=== PATIENT | male | born 1945 | race Caucasian/White ===

== ENCOUNTER 2021-10-16 12:41 | Emergency (ER) | payer MEDICARE, SELFPAY ==
--- NOTE | ~2021-10-16 | CT_ITS ---
EXAMINATION: CT HEAD WITHOUT CONTRAST CLINICAL INFORMATION: LOC on Coumadin COMPARISON: None TECHNIQUE: Contiguous axial imaging was performed from the skull base to vertex without intravenous administration of contrast. This CT examination was performed using dose optimization techniques as appropriate, variously including the following: *Automated exposure control *Adjustment of mA and/or kV according to patient size (this includes techniques or standardized protocols for targeted exams where dose is matched to indication/reason for exam; i.e. extremities or head) *Use of iterative reconstruction technique DLP: 733 mGy-cm FINDINGS: There is no evidence of acute intracranial hemorrhage or territorial infarction. No abnormal mass effect or midline shift is seen. Awan to white matter differentiation is well preserved. No extra-axial fluid collections are identified. The ventricles are symmetrical in size but enlarged. There is diffuse periventricular hypodensity suggestive of chronic small vessel ischemic changes. The osseous structures and soft tissues are normal. There are small polyp or retention cyst bilateral maxillary sinuses. Rest of the paranasal sinuses are well-aerated and clear. CT/CT head/brain wo con IMPRESSION: No acute intracranial process seen. Age-related cerebral volume loss. Chronic small vessel ischemic changes in both cerebral hemispheres.
[2021-10-16 12:50] VITALS: BP 158/89; BP 180/93; PULSE 110; PULSE 115; RESP 20; TEMP 37.1; O2SAT 97; BMI 27.3
--- NOTE | 2021-10-16 13:11 | ECG_ITS ---
Test Reason : tachycardia Blood Pressure : / mmHG Vent. Rate : 112 BPM Atrial Rate : 112 BPM P-R Int : 172 ms QRS Dur : 076 ms QT Int : 320 ms P-R-T Axes : 044 009 052 degrees QTc Int : 436 ms Sinus tachycardia Otherwise normal ECG No previous ECGs available Referred By: Dorinda Johnson Electronically Signed By:GRUPO BENITEZ MD
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
[2021-10-16] MEDS: LORazepam 1 MG TABLET PO ×2 (13:18→20:33)
[2021-10-16] MEDS: 0.9 % Sodium Chloride 1,000 ML 999 ML IVCONT ×2 (13:36→18:53)
[2021-10-16 13:40] LABS: MANUAL DIFF FLAG NO
[2021-10-16 13:46] VITALS: BP 181/95; PULSE 109; RESP 23; TEMP 37.1; O2SAT 95
[2021-10-16 13:48] LABS: Basophils Percent Auto 0.5 % (0-2); Eosinophils Percent Auto 0.5 % (0-4); Hematocrit 39.1 % (42.0-52.0); Hemoglobin 12.5 g/dl (14.0-18.0); INTERNATIONAL NORM RATIO 4.2 (0.9-1.1); Imm Gran Abs Auto 0.05 X10*3/uL (0.00-0.03); Imm Gran Pct Auto 0.6 % (0.0-0.4); Lymphocytes Absolute Auto 0.6 X10*3/uL (1.2-4.9); Lymphocytes Percent Auto 6.6 % (20-40); Mean Corpuscular Hemoglobin 30.3 pg (27.0-33.0); Mean Corpuscular Volume 94.9 fL (80.0-98.0); Mean Platelet Volume 9.6 fL (9.4-12.4); Monocytes Absolute Auto 0.4 X10*3/uL (0.1-1.2); Neutrophils Absolute Auto 7.7 x10*3/uL (2.0-8.3); Neutrophils Percent Auto 86.8 % (45-73); Platelet Count 364 X10*3/uL (160-400); Prothrombin Time 51.8 SEC (10.0-13.1); Red Blood Count 4.12 X10*6/uL (4.60-5.80); Red Cell Distribution Width 17.9 % (11.0-16.0); White Blood Count 8.9 X10*3/uL (4.8-10.8)
[2021-10-16 13:58] LABS: D Dimer High Sensitivity 212 NG/ML
[2021-10-16 14:04] LABS: Ethanol < 10 mg/dL
[2021-10-16 14:09] LABS: Alanine Aminotransferase 12 U/L (0-40); Albumin Level 4.5 g/dL (3.5-5.0); Alkaline Phosphatase 78 U/L (39-117); Anion Gap 22 (12-20); Aspartate Amino Transferase 22 U/L (5-37); Bilirubin Direct < 0.2 mg/dL (0.0-0.5); Bilirubin Total 0.2 mg/dL (0.0-1.0); Blood Urea Nitrogen 19 mg/dL (9-16); Calcium 9.8 mg/dL (8.4-10.2); Carbon Dioxide 21 mmol/L (22-29); Chloride 105 mmol/L (96-108); Creatinine Clr Calc Pharmacy 41.6; Estimated Glomerular Filt Rate 45; Glucose Random 201 mg/dL (60-115); Magnesium 1.7 mg/dL (1.6-2.6); Potassium 4.2 mmol/L (3.3-5.1); Sodium 144 mmol/L (135-145); Total Protein 6.9 g/dL (6.5-8.0)
[2021-10-16 14:12] LABS: Troponin-I High Sensitivity 14.1 ng/L (<3.5-35.0)
[2021-10-16 16:18] VITALS: BP 183/87; PULSE 100; RESP 14; TEMP 36.9; O2SAT 92
[2021-10-16 18:04] LABS: Appearance Urine CLEAR; Color Urine YELLOW; Glucose Urine UA NEG (NEG); Leukocyte Esterase Urine NEG (NEG); Nitrite Urine NEG (NEG); PH 5.5 (5.0-8.0); Specific Gravity - Urine >= 1.030 (1.005-1.025); UACC Culture Trigger NO; Urine Blood NEG (NEG); Urine Ketones NEG (NEG); Urine Protein 2+ MG/DL (NEG-TRACE)
[2021-10-16 18:12] LABS: Bacteria Urine TRACE /LPF; Hyaline Casts Urine 0-2 /LPF; RBC Urine 0 /HPF (0); Squamous Epithelial Cell Urine TRACE /LPF; WBC Urine 0 /HPF (0-4)
[2021-10-16 18:32] LABS: Amphetamine Screen Urine Not Detected (Not Detect); Barbiturates, Urine Not Detected (Not Detect); Benzodiazepines Screen Urine Not Detected (Not Detect); Cannabinoid Screen Urine Not Detected (Not Detect); Cocaine Screen Urine POSITIVE (Not Detect); Fentanyl, urine POSITIVE (Not Detect); Opiate Screen Urine Not Detected (Not Detect); Phencyclidine Screen Urine Not Detected (Not Detect)
== END 2021-10-16 20:44 | disposition home or self-care (01) ==
PROVIDERS: Emergency Provider Emergency Medicine
DX: T40.5X1A Poisoning by cocaine, accidental (unintentional), initial encounter (principal); T40.411A Poisoning by fentanyl or fentanyl analogs, accidental (unintentional), initial encounter; R40.4 Transient alteration of awareness; Y92.810 Car as the place of occurrence of the external cause; F41.9 Anxiety disorder, unspecified; F19.10 Other psychoactive substance abuse, uncomplicated; F10.10 Alcohol abuse, uncomplicated; Y90.0 Blood alcohol level of less than 20 mg/100 ml
CPT/HCPCS: 36415; 70450; 80048; 80076; 80307; 81001; 82077; 83735; 84484; 85025; 85379; 85610; 93005; 96360; 96361; 99284

== ENCOUNTER 2022-10-10 15:44 | Inpatient (IN) | payer MEDICARE, SELFPAY ==
[2022-10-10 16:10] VITALS: BP 130/74; PULSE 90; RESP 16; TEMP 36.4; O2SAT 98
[2022-10-10 16:16] VITALS: BMI 26.2
[2022-10-10] MEDS: hydrOXYzine HCL 25 MG TABLET PO (17:21)
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
[2022-10-10 18:00] VITALS: BP 90/51; PULSE 90; RESP 16; TEMP 36.1; O2SAT 94
--- NOTE | 2022-10-10 19:28 | HO.PM.IMCN ---
History of Present Illness Data of Consult Service Date: 10/10/22 Primary Care Provider: Gibson Wheeler DO HPI Reason for consult: Admission H&P Pt is a 76-year-old male with a PMH significant for?HTN, HLD, BPH, GERD, recurrent episodes of aphasia/TIAs, factor V Leiden on Xarelto, hx of DVT, and alcohol use disorder who is admitted to [facility] for increasing confusion and tox screen positive for methadone. Son states his father has been experiencing increased depression and anxiety lately and has noticed missing medications at home. Medical consult for admission H&P. ?Patient seen evaluated in his room where he appeared unsteady on his feet. Patient has a walker on the unit, but uses a cane at. Patient has no acute medical complaints at this time. Only complains of his having a new boyfriend. To denies chest pain/pressure palpitations. No lightheadedness or dizziness. Denies headache, vision changes. No shortness of breath. Denies fever, chills, nausea, vomiting, abdominal pain. Labs reviewed, significant for BUN 31 and creatinine 1.81 Review of Systems Review of Systems: Patient has no acute medical complaints at this time Yes all other systems are reviewed and are negative [facility] Medical History Alcohol abuse Anxiety Substance abuse Social History Household Members: Spouse Housing: House Do you presently have visiting nurse or other home services: No Patient Tobacco Use Status: Never used Tobacco Use of substances other than those prescribed or required for medical reasons: No Currently Displaying Signs/Symptoms of Drug Intoxication Withdrawal: No Have you been hit, kicked, punched, or otherwise hurt by someone within the past year? If so, by whom?: No Do you feel safe in your current relationship?: Yes Is there a partner from a previous relationship who is making you feel unsafe now?: No Are you made to feel afraid or neglected: No (PT STATES THAT HIS CAN BE VERBALLY AGRESSIVE.) Spiritual Healthcare Practices: PT ATTENDS AA Advance Directives: No Advance Directives Information Provided: No (Declined) Do you have thoughts of harming others: None Do you have a plan to hurt others: No Plan Recently lost weight without trying: No How much weight loss: Not applicable Eating poorly because of decreased appetite: Yes Nutrition screen score: 1 Nutrition Risks: No Nutritional Risk Poor oral hygiene: No service: No Sexual orientation: Straight/Heterosexual Meds Allergies Allergy/AdvReac Type Severity Reaction Status Date / Time Unable to Assess Allergy Unverified 10/16/21 13:11 Active Medications: Current Medications Acetaminophen (Acetaminophen 325 Mg Tablet) 650 mg PO Q6H PRN PRN Reason: Headache/Pain Mild Scale (1-3) Al Hydroxide/Mg Hydroxide (Magnesium Hydrox/Alum Hydrox 30 Ml Oral.Susp) 30 ml PO Q6H PRN PRN Reason: Heartburn/Nausea Hydroxyzine HCl (Hydroxyzine Hcl 25 Mg Tablet) 25 mg PO Q6H PRN PRN Reason: Anxiety Last Admin: 10/10/22 17:21 Dose: 25 mg Magnesium Hydroxide (Milk Of Magnesia 30 Ml Oral.Susp) 30 ml PO DAILY PRN PRN Reason: Constipation Trazodone HCl (Trazodone Hcl 50 Mg Tablet) 50 mg PO BEDTIME MRX1 PRN PRN Reason: Insomnia Home Medications Medication Instructions Recorded Confirmed Last Taken Type amlodipine 5 mg tablet 5 mg PO DAILY 10/11/22 10/11/22 Unknown History atorvastatin 80 mg tablet 80 mg PO DAILY 10/11/22 10/11/22 Unknown History celecoxib 200 mg capsule 200 mg PO DAILY 10/11/22 10/11/22 Unknown History escitalopram oxalate 20 mg tablet 20 mg PO DAILY 10/11/22 10/11/22 Unknown History gabapentin 800 mg tablet 800 mg PO QID 10/11/22 10/11/22 Unknown History iron 150 mg-C 60 mg-B12 25 1 cap PO DAILY 10/11/22 10/11/22 Unknown History mcg-folic acid 1 ef-[id number]-yo.acid capsule (Ferrex) lisinopril 10 mg tablet 10 mg PO DAILY 10/11/22 10/11/22 Unknown History lorazepam 1 mg tablet 1 mg PO Q6H PRN anxiety 10/11/22 10/11/22 Unknown History omeprazole 20 mg capsule,delayed 20 mg PO BID 10/11/22 10/11/22 Unknown History release rivaroxaban 20 mg tablet (Xarelto) 20 mg PO DAILY 10/11/22 10/11/22 Unknown History tamsulosin 0.4 mg capsule 0.4 mg PO DAILY 10/11/22 10/11/22 Unknown History tramadol 50 mg tablet 50 mg PO Q6H PRN Pain 10/11/22 10/11/22 Unknown History Physical Exam Vital Signs and Narrative: Vital Signs: Last Vital Signs Temp 97.5 F 10/10/22 16:10 Pulse 90 10/10/22 16:10 Resp 16 10/10/22 16:10 BP 130/74 10/10/22 16:10 Pulse Ox 98 10/10/22 16:10 O2 Del Method Room Air 10/10/22 16:10 BMI result Body Mass Index 26.2 Constitutional: Alert, confused, in no acute distress. Mental Status: Oriented to person and time, not to place or situation. Eyes: Pupils are equal, round, and reactive to light. Ear, Nose, and Throat: Oropharynx clear, mucous membranes moist. Ears and nose without deformities. Trachea midline. Respiratory: Clear to auscultation bilaterally. No wheezing, rales, or rhonchi. Cardiovascular: S1, S2 regular. No murmurs, rubs, or gallops. Gastrointestinal: Abdomen soft, non-tender, non-distended. Normal bowel sounds. Neurologic: Cranial nerves II-XII are grossly intact bilaterally. No focal neurological deficits. Moves all extremities spontaneously. Skin: No rashes or lesions noted. Musculoskeletal: No cyanosis or clubbing. Appears unsteady on feet. Extremities: No edema. Psychiatric: Pleasantly confused, cooperative. Results Labs 10/11/22 08:07 Assessment and Plan (1) Routine history and physical examination of adult: Status: Acute Plan Pt is a 76-year-old male with a PMH significant for?HTN, HLD, BPH, GERD, recurrent episodes of aphasia/TIAs, factor V Leiden on Xarelto, hx of DVT, and alcohol use disorder who is admitted to [facility] for increasing confusion and tox screen positive for methadone. Son states his father has been experiencing increased depression and anxiety lately and has noticed missing medications at home. Medical consult for admission H&P. Mood disorder Plan as per Psychiatry CKD stage 3 Patient's BUN 31 and creatinine 1.81, elevated over levels 1 year ago Unclear what patient's current baseline is Encourage p.o. fluid intake Factor v Leiden Continue Xarelto HTN Continue amlodipine, lisinopril BPH Continue tamsulosin Occurred Continue omeprazole HLD Continue atorvastatin Unsteadiness on feet Pt high fall risk Pt should always use walker for ambulation on the unit Thank you for allowing us to participate in the care of this patient. Signing off at this time. Please let us know if there are any acute complaints or questions. Time Spent With Patient Time: Total time managing care of this patient today ____ minutes.
[2022-10-11] MEDS: traZODone HCL 50 MG TABLET PO ×2 (00:30→20:29)
[2022-10-11] MEDS: hydrOXYzine HCL 25 MG TABLET PO ×2 (00:31→20:29)
--- NOTE | 2022-10-11 08:09 | PHA.MEDREC ---
Pharmacy Consult ? Medication Reconciliation Pharmacy has completed the medication reconciliation. Claim history used to complete med rec
[2022-10-11 08:23] VITALS: BP 104/58; PULSE 76; RESP 18; TEMP 36.8; O2SAT 94
[2022-10-11 08:34] LABS: Alanine Aminotransferase 11 U/L (0-40); Albumin Level 3.8 g/dL (3.5-5.0); Alkaline Phosphatase 105 U/L (39-117); Anion Gap 20 (12-20); Aspartate Amino Transferase 19 U/L (5-37); Bilirubin Total 0.7 mg/dL (0.0-1.0); Blood Urea Nitrogen 31 mg/dL (9-16); Calcium 9.7 mg/dL (8.4-10.2); Carbon Dioxide 20 mmol/L (22-29); Chloride 106 mmol/L (96-108); Cholesterol 146 mg/dL; Creatinine Clr Calc Pharmacy 34.6; Estimated Glomerular Filt Rate 37; Glucose Fasting 100 mg/dL (60-99); HDL Cholesterol 43 mg/dL; LDL Cholesterol Calculated 86 mg/dl; Potassium 4.2 mmol/L (3.3-5.1); Sodium 142 mmol/L (135-145); Total Protein 6.5 g/dL (6.5-8.0); Triglycerides 87 mg/dL
--- NOTE | 2022-10-11 08:53 | P.HPPS_ITS ---
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 According to the crisis assessment, his son call 911 since he found 2 bottles of medication that were empty and he is affected that his father overdosed on Ativan and other medication. Was rushed to the emergency room, assessed by medical team and transfer to the medical unit for clinical observation. The patient was medically cleared, reassessed by Psychiatry and since the patient was very depressed with suicidal ideation transferring to this facility for psychiatric stabilization. On interview, the patient reported that he has marital conflicts for several months, this moment his has a relation with another man, most likely they are going for divorce after several years of marriage and he admitted that he has depressive symptoms elicited by depressed mood, anhedonia, lack of energy, feelings of hopelessness, poor sleep, increased anxiety but he adamantly denies active suicidal ideation. The patient is able to contract for safety in the facility. Historically, the patient had a past history of alcohol use disorder but clean and sober for several years. He reports that he attends 2 AA meetings and denies any recent relapses. According to his chart, on most last year, he was in our emergency room for loss of consciousness since apparently a prostitute sedated him and he was positive to benzos and cocaine. He adamantly denies current substance abuse. No evidence of psychotic symptoms, he is able to contract for safety Past Psychiatric History: Apparently he has a prior psychiatric admission at [facility] several years ago. At least more than 20 years. His primary care physician starting him on antidepressants recently. Medical Evaluation Reviewed: Yes [facility] Medical History (Updated 10/11/22 @ 15:00 by Musa Grey) Alcohol abuse Anxiety Substance abuse Family History: The patient has been adopted and he does not know his biological family. Social History: The patient was adopted when he was 3-day-old, he was raised by his adopted family he stated that he has a very good childhood. He graduated from high school and he has worked as a little live or and a coretta. He got twice he has a daughter from his 1st marriage and 2 adult children for his current marriage. He states that he lives with his but apparently she has moved with her new boyfriend Substance History: Past history of alcohol use. Trauma History: Denies Diagnostics Vital Signs (24Hr): Vital Signs - 24 hr 10/10/22 16:10 10/10/22 18:00 10/11/22 08:23 Temperature 97.5 F 97 F 98.3 F Pulse Rate 90 90 76 Respiratory Rate 16 16 18 Blood Pressure 130/74 90/51 L 104/58 L Pulse Oximetry 98 94 94 Oxygen Delivery Method Room Air Room Air Room Air BMI result Body Mass Index 26.2 Labs 10/11/22 08:07 Labs: Laboratory Results - last 48 hr 10/11/22 08:07 Sodium 142 Potassium 4.2 Chloride 106 Carbon Dioxide 20 L Anion Gap 20 BUN 31 H Creatinine 1.81 H Estim Creat Clear Calc 34.6 Estimated GFR 37 Fasting Glucose 100 H Calcium 9.7 Total Bilirubin 0.7 AST 19 ALT 11 Alkaline Phosphatase 105 Total Protein 6.5 Albumin 3.8 Triglycerides 87 Cholesterol 146 LDL Cholesterol, Calc 86 HDL Cholesterol 43 Meds/Allergies Meds Home Medications Medication Instructions Recorded Confirmed Type amlodipine 5 mg tablet 5 mg PO DAILY 10/11/22 10/11/22 History atorvastatin 80 mg tablet 80 mg PO DAILY 10/11/22 10/11/22 History celecoxib 200 mg capsule 200 mg PO DAILY 10/11/22 10/11/22 History escitalopram oxalate 20 mg tablet 20 mg PO DAILY 10/11/22 10/11/22 History gabapentin 800 mg tablet 800 mg PO QID 10/11/22 10/11/22 History iron 150 mg-C 60 mg-B12 25 1 cap PO DAILY 10/11/22 10/11/22 History mcg-folic acid 1 hx-kophmun-fw.acid capsule (Ferrex) lisinopril 10 mg tablet 10 mg PO DAILY 10/11/22 10/11/22 History lorazepam 1 mg tablet 1 mg PO Q6H PRN anxiety 10/11/22 10/11/22 History omeprazole 20 mg capsule,delayed 20 mg PO BID 10/11/22 10/11/22 History release rivaroxaban 20 mg tablet (Xarelto) 20 mg PO DAILY 10/11/22 10/11/22 History tamsulosin 0.4 mg capsule 0.4 mg PO DAILY 10/11/22 10/11/22 History tramadol 50 mg tablet 50 mg PO Q6H PRN Pain 10/11/22 10/11/22 History Allergies Allergies Allergy/AdvReac Type Severity Reaction Status Date / Time Unable to Assess Allergy Unverified 10/16/21 13:11 Mental Status Exam Mental Status Exam Patient Appearance: Appropriate (On hospital gowns) Patient Orientation: Person, Place and Situation Level of Consciousness: Awake and Appropriate Patient Behavior: Guarded and Passive Mood Description: Withdrawn Affect Description: Constricted Patient Cognition Impaired: Yes Ability to Follow Directions: Good Speech Pattern: Clear Hallucinations: None Delusions: Not Present Thought Process: Distracted Thought Content: positive for Circumstantial Judgement: Fair Assessment & Plan Assessment & Plan (1) Major depressive disorder: Status: Acute Code(s): F32.9 - Major depressive disorder, single episode, unspecified (2) Neurodegenerative cognitive impairment: Status: Acute Code(s): G31.9 - Degenerative disease of nervous system, unspecified Plan The patient is an elderly male with a past history of alcohol use disorder, transferred from [facility] after being medically cleared with a possible overdose on prescription pills. The patient acknowledged a history of depression that was exacerbated with psychosocial stressors, marital discord. He adamantly denies psychotic symptoms. Plan 1. Gather collateral information. 2. 15 minute checks since the patient is able to contract for safety. 3. Continue Lexapro. 4. Neuro cognitive testing. The occupational therapist did a Emery test and an Arian test on admission and it seems that it is lower. We will start with Aricept 5 mg p.o. q.h.s. today. 5. Continue with medical treatment. 6. Reassessment with results Patient educated on: diagnosis and therapeutic strategies Reason for continued inpatient stay Substantial Risk for: inability to function, rapid decompensation and med/psych decompensation Statement Statement: I have reviewed the history and physical and performed a pertinent examination on my patient. No changes have occurred unless specified. If the History and Physical was not performed prior to admission, the Hospitalist's service will be consulted for completing the admission physical. Time Spent With Patient Time: Total time managing care of this patient today _45___ minutes.
[2022-10-11] MEDS: Omeprazole 20 MG CAPSULE.DR PO (17:08)
[2022-10-11 18:00] VITALS: BP 123/64; PULSE 78; RESP 20; TEMP 37.1; O2SAT 95
--- NOTE | 2022-10-12 07:48 | HO.PSYCHPN ---
Subjective Subjective Date of Service: 10/12/22 Reason For Visit: Adjustment disorders with depressed mood Subjective Notes: Conditional Voluntary Interim History: The nursing staff reported that the patient was confused and disorganized last night . He slept only 4 hours he was seen in his room without clthing, naked. On interview the patient was very pleasant, confused at times, explain him that it seems that he has mental status change in the evening so will start a low dose of antipsychotic to prevent this behavior.. Mental Status Exam Mental Status Exam Patient Appearance: Appropriate Patient Orientation: Person and Situation Level of Consciousness: Awake and Appropriate Patient Behavior: Guarded and Passive Mood Description: Withdrawn Affect Description: Constricted Patient Cognition Impaired: Yes Ability to Follow Directions: Good Speech Pattern: Clear Hallucinations: None Delusions: Not Present Thought Process: Distracted and Slowed Thinking Thought Content: positive for [place] and positive for Circumstantial Judgement: Fair Diagnostics Vital Signs (24Hr): Vital Signs - 24 hr 10/11/22 08:23 10/11/22 18:00 Temperature 98.3 F 98.7 F Pulse Rate 76 78 Respiratory Rate 18 20 Blood Pressure 104/58 L 123/64 Pulse Oximetry 94 95 Oxygen Delivery Method Room Air Room Air BMI result Body Mass Index 26.2 Labs 10/11/22 08:07 Labs: Laboratory Results - last 48 hr 10/11/22 08:07 Sodium 142 Potassium 4.2 Chloride 106 Carbon Dioxide 20 L Anion Gap 20 BUN 31 H Creatinine 1.81 H Estim Creat Clear Calc 34.6 Estimated GFR 37 Fasting Glucose 100 H Calcium 9.7 Total Bilirubin 0.7 AST 19 ALT 11 Alkaline Phosphatase 105 Total Protein 6.5 Albumin 3.8 Triglycerides 87 Cholesterol 146 LDL Cholesterol, Calc 86 HDL Cholesterol 43 Medications Medications Current Medications Acetaminophen (Acetaminophen 325 Mg Tablet) 650 mg PO Q6H PRN PRN Reason: Headache/Pain Mild Scale (1-3) Al Hydroxide/Mg Hydroxide (Magnesium Hydrox/Alum Hydrox 30 Ml Oral.Susp) 30 ml PO Q6H PRN PRN Reason: Heartburn/Nausea Amlodipine Besylate (Amlodipine Besylate 5 Mg Tablet) 5 mg PO DAILY [facility]; Protocol Atorvastatin Calcium (Atorvastatin Calcium 80 Mg Tablet) 80 mg PO DAILY [facility] Celecoxib (Celecoxib 200 Mg Capsule) 200 mg PO DAILY [facility] Donepezil HCl (Donepezil Hcl 5 Mg Tablet) 5 mg PO DAILY [facility] Escitalopram Oxalate (Escitalopram Oxalate 20 Mg Tablet) 20 mg PO DAILY [facility] Hydroxyzine HCl (Hydroxyzine Hcl 25 Mg Tablet) 25 mg PO Q6H PRN PRN Reason: Anxiety Last Admin: 10/11/22 20:29 Dose: 25 mg Lisinopril (Lisinopril 10 Mg Tablet) 10 mg PO DAILY [facility]; Protocol Magnesium Hydroxide (Milk Of Magnesia 30 Ml Oral.Susp) 30 ml PO DAILY PRN PRN Reason: Constipation Omeprazole (Omeprazole 20 Mg Capsule.Dr) 20 mg PO BID@0630,1630 [facility] Last Admin: 10/11/22 17:08 Dose: 20 mg Rivaroxaban (Rivaroxaban 20 Mg Tablet) 20 mg PO DAILY [facility] Tamsulosin HCl (Tamsulosin Hcl 0.4 Mg Capsule) 0.4 mg PO DAILY [facility] Tramadol HCl (Tramadol Hcl 50 Mg Tablet) 50 mg PO Q6H PRN PRN Reason: Pain, Moderate(Pain Scale 4-6) Trazodone HCl (Trazodone Hcl 50 Mg Tablet) 50 mg PO BEDTIME MRX1 PRN PRN Reason: Insomnia Last Admin: 10/11/22 20:29 Dose: 50 mg Allergies Allergies Allergy/AdvReac Type Severity Reaction Status Date / Time Unable to Assess Allergy Unverified 10/16/21 13:11 Assessment & Plan Assessment & Plan (1) Routine history and physical examination of adult: Status: Acute Code(s): Z00.00 - Encounter for general adult medical examination without abnormal findings Plan Pt is a 76-year-old male with a PMH significant for?HTN, HLD, BPH, GERD, recurrent episodes of aphasia/TIAs, factor V Leiden on Xarelto, hx of DVT, and alcohol use disorder who is admitted to [facility] for increasing confusion and tox screen positive for methadone. Son states his father has been experiencing increased depression and anxiety lately and has noticed missing medications at home. Medical consult for admission H&P. Mood disorder Plan as per Psychiatry CKD stage 3 Patient's BUN 31 and creatinine 1.81, elevated over levels 1 year ago Unclear what patient's current baseline is Encourage p.o. fluid intake Factor v Leiden Continue Xarelto HTN Continue amlodipine, lisinopril BPH Continue tamsulosin Occurred Continue omeprazole HLD Continue atorvastatin Unsteadiness on feet Pt high fall risk Pt should always use walker for ambulation on the unit Plan 1. Gather collateral information. 2. Continue with current medications. 3. Start dose of Risperdal 0.5 p.o. q.h.s. to target on October 12. 4. We will discontinue Vistaril and we try trazodone as a p.r.n. for anxiety on October 12. 5. Increased Aricept up to 10 mg p.o. q.h.s. in October 12. Reason for continued inpatient stay Substantial Risk for: inability to function, rapid decompensation and med/psych decompensation Time Spent With Patient Time: Total time managing care of this patient today __20__ minutes.
[2022-10-12 08:00] VITALS: BP 128/64; PULSE 70; RESP 16; TEMP 36.9; O2SAT 96
[2022-10-12] MEDS: Tamsulosin HCL 0.4 MG CAPSULE PO (09:12)
[2022-10-12] MEDS: amLODIPine Besylate 5 MG TABLET PO (09:12)
[2022-10-12] MEDS: Rivaroxaban 20 MG TABLET PO (09:12)
[2022-10-12] MEDS: Escitalopram Oxalate 20 MG TABLET PO (09:12)
[2022-10-12] MEDS: Celecoxib 200 MG CAPSULE PO (09:12)
[2022-10-12] MEDS: Atorvastatin Calcium 80 MG TABLET PO (09:12)
[2022-10-12] MEDS: lisinopriL 10 MG TABLET PO (09:12)
[2022-10-12] MEDS: Omeprazole 20 MG CAPSULE.DR PO ×2 (09:18→16:11)
[2022-10-12] MEDS: Donepezil HCl 10 MG TABLET PO (09:21)
[2022-10-12] MEDS: Acetaminophen 325 MG TABLET 650 MG PO (12:09)
[2022-10-12 18:00] VITALS: BP 116/58; PULSE 64; RESP 16; TEMP 36.1; O2SAT 97
[2022-10-12] MEDS: traZODone HCL 50 MG TABLET PO (20:25)
[2022-10-12] MEDS: risperiDONE 0.5 MG TABLET PO (20:25)
[2022-10-13 08:00] VITALS: BP 94/52; PULSE 77; RESP 18; TEMP 36.5; O2SAT 96
--- NOTE | 2022-10-13 08:18 | P.PNPSI_ITS ---
Subjective Subjective Date of Service: 10/13/22 Reason For Visit: Adjustment disorders with depressed mood Subjective Notes: Conditional Voluntary Interim History: The nursing staff reported the patient had been less confused last night he slept all night. He was lucid and he has been medication compliant. Yesterday he had a bowel movement. On interview the patient is pleasant, cooperative, he asked for the telephone of his son Ward. We are changing his observation to 15 minute checks. Mental Status Exam Mental Status Exam Patient Appearance: Appropriate Patient Orientation: Person and Situation Level of Consciousness: Awake and Appropriate Patient Behavior: Guarded and Passive Mood Description: Calm Affect Description: Constricted Patient Cognition Impaired: Yes Ability to Follow Directions: Good Speech Pattern: Clear Hallucinations: None Delusions: Not Present Thought Process: Distracted and Evasive Thought Content: positive for [place] and positive for [place] Judgement: Fair Diagnostics Vital Signs (24Hr): Vital Signs - 24 hr 10/12/22 18:00 Temperature 96.9 F Pulse Rate 64 Respiratory Rate 16 Blood Pressure 116/58 L Pulse Oximetry 97 Oxygen Delivery Method Room Air BMI result Body Mass Index 26.2 Labs 10/11/22 08:07 Labs: Laboratory Results - last 48 hr 10/11/22 08:07 Sodium 142 Potassium 4.2 Chloride 106 Carbon Dioxide 20 L Anion Gap 20 BUN 31 H Creatinine 1.81 H Estim Creat Clear Calc 34.6 Estimated GFR 37 Fasting Glucose 100 H Calcium 9.7 Total Bilirubin 0.7 AST 19 ALT 11 Alkaline Phosphatase 105 Total Protein 6.5 Albumin 3.8 Triglycerides 87 Cholesterol 146 LDL Cholesterol, Calc 86 HDL Cholesterol 43 Medications Medications Current Medications Acetaminophen (Acetaminophen 325 Mg Tablet) 650 mg PO Q6H PRN PRN Reason: Headache/Pain Mild Scale (1-3) Last Admin: 10/12/22 12:09 Dose: 650 mg Al Hydroxide/Mg Hydroxide (Magnesium Hydrox/Alum Hydrox 30 Ml Oral.Susp) 30 ml PO Q6H PRN PRN Reason: Heartburn/Nausea Amlodipine Besylate (Amlodipine Besylate 5 Mg Tablet) 5 mg PO DAILY [facility]; Protocol Last Admin: 10/12/22 09:12 Dose: 5 mg Atorvastatin Calcium (Atorvastatin Calcium 80 Mg Tablet) 80 mg PO DAILY [facility] Last Admin: 10/12/22 09:12 Dose: 80 mg Celecoxib (Celecoxib 200 Mg Capsule) 200 mg PO DAILY [facility] Last Admin: 07/29/23 09:12 Dose: 200 mg Donepezil HCl (Donepezil Hcl 10 Mg Tablet) 10 mg PO DAILY [facility] Last Admin: 10/12/22 09:21 Dose: 10 mg Escitalopram Oxalate (Escitalopram Oxalate 20 Mg Tablet) 20 mg PO DAILY [facility] Last Admin: 10/12/22 09:12 Dose: 20 mg Lisinopril (Lisinopril 10 Mg Tablet) 10 mg PO DAILY [facility]; Protocol Last Admin: 10/12/22 09:12 Dose: 10 mg Magnesium Hydroxide (Milk Of Magnesia 30 Ml Oral.Susp) 30 ml PO DAILY PRN PRN Reason: Constipation Omeprazole (Omeprazole 20 Mg Capsule.Dr) 20 mg PO BID@0630,1630 [facility] Last Admin: 10/12/22 16:11 Dose: 20 mg Risperidone (Risperidone 0.5 Mg Tablet) 0.5 mg PO BEDTIME [facility] Last Admin: 10/12/22 20:25 Dose: 0.5 mg Rivaroxaban (Rivaroxaban 20 Mg Tablet) 20 mg PO DAILY [facility] Last Admin: 10/12/22 09:12 Dose: 20 mg Tamsulosin HCl (Tamsulosin Hcl 0.4 Mg Capsule) 0.4 mg PO DAILY [facility] Last Admin: 10/12/22 09:12 Dose: 0.4 mg Tramadol HCl (Tramadol Hcl 50 Mg Tablet) 50 mg PO Q6H PRN PRN Reason: Pain, Moderate(Pain Scale 4-6) Trazodone HCl (Trazodone Hcl 50 Mg Tablet) 50 mg PO BEDTIME MRX1 PRN PRN Reason: Insomnia Last Admin: 10/12/22 20:25 Dose: 50 mg Trazodone HCl (Trazodone Hcl 25 Mg Halftab) 25 mg PO TID PRN PRN Reason: Anxiety Allergies Allergies Allergy/AdvReac Type Severity Reaction Status Date / Time No Known Allergies Allergy Verified 10/12/22 09:57 Assessment & Plan Assessment & Plan (1) Routine history and physical examination of adult: Status: Acute Code(s): Z00.00 - Encounter for general adult medical examination without abnormal findings Plan Pt is a 76-year-old male with a PMH significant for?HTN, HLD, BPH, GERD, recurrent episodes of aphasia/TIAs, factor V Leiden on Xarelto, hx of DVT, and alcohol use disorder who is admitted to [facility] for increasing confusion and tox screen positive for methadone. Son states his father has been experiencing increased depression and anxiety lately and has noticed missing medications at home. Medical consult for admission H&P. Mood disorder Plan as per Psychiatry CKD stage 3 Patient's BUN 31 and creatinine 1.81, elevated over levels 1 year ago Unclear what patient's current baseline is Encourage p.o. fluid intake Factor v Leiden Continue Xarelto HTN Continue amlodipine, lisinopril BPH Continue tamsulosin Occurred Continue omeprazole HLD Continue atorvastatin Unsteadiness on feet Pt high fall risk Pt should always use walker for ambulation on the unit Plan 1. Gather collateral information. 2. Continue with current medications. 3. Start dose of Risperdal 0.5 p.o. q.h.s. to target on October 12. 4. We will discontinue Vistaril and we try trazodone as a p.r.n. for anxiety on October 12. 5. Increased Aricept up to 10 mg p.o. q.h.s. in October 12. Reason for continued inpatient stay Substantial Risk for: inability to function, rapid decompensation and med/psych decompensation Time Spent With Patient Time: Total time managing care of this patient today __20__ minutes.
[2022-10-13] MEDS: Tamsulosin HCL 0.4 MG CAPSULE PO (08:22)
[2022-10-13] MEDS: Celecoxib 200 MG CAPSULE PO (08:22)
[2022-10-13] MEDS: Escitalopram Oxalate 20 MG TABLET PO (08:23)
[2022-10-13] MEDS: Atorvastatin Calcium 80 MG TABLET PO (08:23)
[2022-10-13] MEDS: Donepezil HCl 10 MG TABLET PO (08:23)
[2022-10-13] MEDS: Omeprazole 20 MG CAPSULE.DR PO ×2 (08:23→15:40)
[2022-10-13] MEDS: Rivaroxaban 20 MG TABLET PO (08:23)
[2022-10-13 18:00] VITALS: BP 134/64; PULSE 71; RESP 18; TEMP 36.9; O2SAT 96
[2022-10-13] MEDS: risperiDONE 0.5 MG TABLET PO (20:36)
[2022-10-13] MEDS: traZODone HCL 50 MG TABLET PO (20:36)
[2022-10-14] MEDS: traZODone HCL 50 MG TABLET PO ×2 (01:47→20:47)
[2022-10-14] MEDS: Omeprazole 20 MG CAPSULE.DR PO ×2 (05:43→16:38)
[2022-10-14 08:15] VITALS: BP 128/63; PULSE 79; RESP 18; TEMP 36.3; O2SAT 99
[2022-10-14] MEDS: Escitalopram Oxalate 20 MG TABLET PO (08:43)
[2022-10-14] MEDS: Donepezil HCl 10 MG TABLET PO (08:43)
[2022-10-14] MEDS: Celecoxib 200 MG CAPSULE PO (08:43)
[2022-10-14] MEDS: amLODIPine Besylate 5 MG TABLET PO (08:43)
[2022-10-14] MEDS: Atorvastatin Calcium 80 MG TABLET PO (08:44)
[2022-10-14] MEDS: Rivaroxaban 20 MG TABLET PO (08:44)
[2022-10-14] MEDS: lisinopriL 10 MG TABLET PO (08:44)
[2022-10-14] MEDS: Tamsulosin HCL 0.4 MG CAPSULE PO (08:45)
--- NOTE | 2022-10-14 10:28 | HO.PSYCHPN ---
Subjective Subjective Date of Service: 10/14/22 Reason For Visit: Adjustment disorders with depressed mood Subjective Notes: Conditional Voluntary Healthcare Proxy: No Guardianship: No Medical Problems Affecting Mental Status: No Interim History: Review with team who report pt is doing well. He has been able to sleep, attend groups, denies SI, HI and has been medication compliant. Pt resting when seen, awakens easily, spontaneous smile, denies pain or issues of current concern. Oriented to person, place ([place]), some conversation when awakens fully. Medication Compliance: Yes Side effects from medications: No Attending Groups: Intermittent Review of Systems Acute medical concerns: No Medical Review of Systems: unchanged Mental Status Exam Mental Status Exam Patient Appearance: Fatigued Patient Orientation: Person and Place Level of Consciousness: Awake and Drowsy Patient Behavior: Appropriate, Talkative, Cooperative, Passive, Fatigued, Confused and Good Eye Contact Mood Description: Calm Affect Description: Flat Patient Cognition Impaired: Yes Ability to Follow Directions: Fair Speech Pattern: Spontaneous Speech, Soft-Spoken and Long Pauses Memory Description: Remote Impaired Hallucinations: None Delusions: Not Present Thought Process: Confusion Thought Content: positive for Slowed Thinking Depressive Symptoms: Increased Fatigue Judgement: Poor Diagnostics Vital Signs (24Hr): Vital Signs - 24 hr 10/13/22 18:00 10/14/22 08:15 Temperature 98.4 F 97.3 F Pulse Rate 71 79 Respiratory Rate 18 18 Blood Pressure 134/64 128/63 Pulse Oximetry 96 99 Oxygen Delivery Method Room Air Room Air BMI result Body Mass Index 26.2 Labs 10/11/22 08:07 Medications Medications Current Medications Acetaminophen (Acetaminophen 325 Mg Tablet) 650 mg PO Q6H PRN PRN Reason: Headache/Pain Mild Scale (1-3) Last Admin: 10/12/22 12:09 Dose: 650 mg Al Hydroxide/Mg Hydroxide (Magnesium Hydrox/Alum Hydrox 30 Ml Oral.Susp) 30 ml PO Q6H PRN PRN Reason: Heartburn/Nausea Amlodipine Besylate (Amlodipine Besylate 5 Mg Tablet) 5 mg PO DAILY [facility]; Protocol Last Admin: 10/14/22 08:43 Dose: 5 mg Atorvastatin Calcium (Atorvastatin Calcium 80 Mg Tablet) 80 mg PO DAILY [facility] Last Admin: 10/14/22 08:44 Dose: 80 mg Celecoxib (Celecoxib 200 Mg Capsule) 200 mg PO DAILY [facility] Last Admin: 10/14/22 08:43 Dose: 200 mg Donepezil HCl (Donepezil Hcl 10 Mg Tablet) 10 mg PO DAILY [facility] Last Admin: 10/14/22 08:43 Dose: 10 mg Escitalopram Oxalate (Escitalopram Oxalate 20 Mg Tablet) 20 mg PO DAILY [facility] Last Admin: 10/14/22 08:43 Dose: 20 mg Lisinopril (Lisinopril 10 Mg Tablet) 10 mg PO DAILY [facility]; Protocol Last Admin: 10/14/22 08:44 Dose: 10 mg Magnesium Hydroxide (Milk Of Magnesia 30 Ml Oral.Susp) 30 ml PO DAILY PRN PRN Reason: Constipation Omeprazole (Omeprazole 20 Mg Capsule.Dr) 20 mg PO BID@0630,1630 [facility] Last Admin: 10/14/22 05:43 Dose: 20 mg Risperidone (Risperidone 0.5 Mg Tablet) 0.5 mg PO BEDTIME [facility] Last Admin: 10/13/22 20:36 Dose: 0.5 mg Rivaroxaban (Rivaroxaban 20 Mg Tablet) 20 mg PO DAILY [facility] Last Admin: 10/14/22 08:44 Dose: 20 mg Tamsulosin HCl (Tamsulosin Hcl 0.4 Mg Capsule) 0.4 mg PO DAILY [facility] Last Admin: 10/14/22 08:45 Dose: 0.4 mg Tramadol HCl (Tramadol Hcl 50 Mg Tablet) 50 mg PO Q6H PRN PRN Reason: Pain, Moderate(Pain Scale 4-6) Trazodone HCl (Trazodone Hcl 50 Mg Tablet) 50 mg PO BEDTIME MRX1 PRN PRN Reason: Insomnia Last Admin: 10/14/22 01:47 Dose: 50 mg Trazodone HCl (Trazodone Hcl 25 Mg Halftab) 25 mg PO TID PRN PRN Reason: Anxiety Allergies Allergies Allergy/AdvReac Type Severity Reaction Status Date / Time No Known Allergies Allergy Verified 10/12/22 09:57 Assessment & Plan Assessment & Plan (1) Routine history and physical examination of adult: Status: Acute Code(s): Z00.00 - Encounter for general adult medical examination without abnormal findings Plan Pt is a 76-year-old male with a PMH significant for?HTN, HLD, BPH, GERD, recurrent episodes of aphasia/TIAs, factor V Leiden on Xarelto, hx of DVT, and alcohol use disorder who is admitted to [facility] for increasing confusion and tox screen positive for methadone. Son states his father has been experiencing increased depression and anxiety lately and has noticed missing medications at home. Medical consult for admission H&P. Mood disorder Plan as per Psychiatry CKD stage 3 Patient's BUN 31 and creatinine 1.81, elevated over levels 1 year ago Unclear what patient's current baseline is Encourage p.o. fluid intake Factor v Leiden Continue Xarelto HTN Continue amlodipine, lisinopril BPH Continue tamsulosin Occurred Continue omeprazole HLD Continue atorvastatin Unsteadiness on feet Pt high fall risk Pt should always use walker for ambulation on the unit Plan 1. Gather collateral information. 2. Continue with current medications. 3. Start dose of Risperdal 0.5 p.o. q.h.s. to target on October 12. 4. We will discontinue Vistaril and we try trazodone as a p.r.n. for anxiety on October 12. 5. Increased Aricept up to 10 mg p.o. q.h.s. in October 12. 7/; Continue current regime and plan of care. Informed Consent: does not understand Reason for continued inpatient stay Substantial Risk for: harm to self, inability to function and med/psych decompensation Time Spent With Patient Time: Total time managing care of this patient today ____ minutes.
[2022-10-14 12:02] LABS: Alanine Aminotransferase 11 U/L (0-40); Albumin Level 4.3 g/dL (3.5-5.0); Alkaline Phosphatase 107 U/L (39-117); Anion Gap 19 (12-20); Aspartate Amino Transferase 17 U/L (5-37); Bilirubin Total 0.8 mg/dL (0.0-1.0); Blood Urea Nitrogen 48 mg/dL (9-16); Carbon Dioxide 18 mmol/L (22-29); Chloride 107 mmol/L (96-108); Creatinine Clr Calc Pharmacy 36.4; Estimated Glomerular Filt Rate 39; Glucose Random 114 mg/dL (60-115); Potassium 4.5 mmol/L (3.3-5.1); Sodium 139 mmol/L (135-145); Total Protein 7.2 g/dL (6.5-8.0)
[2022-10-14 18:00] VITALS: BP 125/60; PULSE 73; RESP 16; TEMP 36; O2SAT 96
[2022-10-14] MEDS: risperiDONE 0.5 MG TABLET PO (20:36)
[2022-10-15] MEDS: Omeprazole 20 MG CAPSULE.DR PO ×2 (06:23→15:01)
[2022-10-15 07:55] VITALS: BP 101/59; PULSE 82; RESP 16; TEMP 36.6; O2SAT 94
[2022-10-15] MEDS: Atorvastatin Calcium 80 MG TABLET PO (08:17)
[2022-10-15] MEDS: Escitalopram Oxalate 20 MG TABLET PO (08:17)
[2022-10-15] MEDS: Donepezil HCl 10 MG TABLET PO (08:17)
[2022-10-15] MEDS: Rivaroxaban 20 MG TABLET PO (08:17)
[2022-10-15] MEDS: Tamsulosin HCL 0.4 MG CAPSULE PO (08:18)
[2022-10-15] MEDS: Celecoxib 200 MG CAPSULE PO (08:18)
--- NOTE | 2022-10-15 10:52 | P.PNPSI_ITS ---
Subjective Subjective Date of Service: 10/15/22 Reason For Visit: Adjustment disorders with depressed mood Subjective Notes: Conditional Voluntary Interim History: The nursing staff reported the patient denies new complaints, he had been very worried about the situation with his that is cheating on him. The social sciences chair reported that we will have a family meeting with his son today at 11:00 o'clock. The occupational therapist reported that he scored 16/30 on the [place] test and tree 0.2 on the Arian test that shows moderated cognitive impairment. On interview the patient denies new symptoms, confused at times, no side effects with the addition of Aricept and Risperdal 0.5 in the evening. Mental Status Exam Mental Status Exam Patient Appearance: Appropriate Patient Orientation: Person and Situation Level of Consciousness: Awake and Appropriate Patient Behavior: Guarded and Passive Mood Description: Calm and Depressed Affect Description: Constricted Patient Cognition Impaired: Yes Ability to Follow Directions: Good Speech Pattern: Clear Hallucinations: None Delusions: Not Present Thought Process: Distracted and Goal Oriented Thought Content: positive for [place] and positive for Circumstantial Judgement: Fair Diagnostics Vital Signs (24Hr): Vital Signs - 24 hr 10/14/22 18:00 10/15/22 07:55 Temperature 96.8 F 97.9 F Pulse Rate 73 82 Respiratory Rate 16 16 Blood Pressure 125/60 101/59 L Pulse Oximetry 96 94 Oxygen Delivery Method Room Air Room Air BMI result Body Mass Index 26.2 Labs 10/14/22 11:43 Labs: Laboratory Results - last 48 hr 10/14/22 11:43 Sodium 139 Potassium 4.5 Chloride 107 Carbon Dioxide 18 L Anion Gap 19 BUN 48 H Creatinine 1.72 H Estim Creat Clear Calc 36.4 Estimated GFR 39 Random Glucose 114 Calcium 10.0 Total Bilirubin 0.8 AST 17 ALT 11 Alkaline Phosphatase 107 Total Protein 7.2 Albumin 4.3 Medications Medications Current Medications Acetaminophen (Acetaminophen 325 Mg Tablet) 650 mg PO Q6H PRN PRN Reason: Headache/Pain Mild Scale (1-3) Last Admin: 10/12/22 12:09 Dose: 650 mg Al Hydroxide/Mg Hydroxide (Magnesium Hydrox/Alum Hydrox 30 Ml Oral.Susp) 30 ml PO Q6H PRN PRN Reason: Heartburn/Nausea Amlodipine Besylate (Amlodipine Besylate 5 Mg Tablet) 5 mg PO DAILY [facility]; Protocol Last Admin: 10/15/22 08:19 Dose: Not Given Atorvastatin Calcium (Atorvastatin Calcium 80 Mg Tablet) 80 mg PO DAILY [facility] Last Admin: 10/15/22 08:17 Dose: 80 mg Celecoxib (Celecoxib 200 Mg Capsule) 200 mg PO DAILY [facility] Last Admin: 10/15/22 08:18 Dose: 200 mg Donepezil HCl (Donepezil Hcl 10 Mg Tablet) 10 mg PO DAILY [facility] Last Admin: 10/15/22 08:17 Dose: 10 mg Escitalopram Oxalate (Escitalopram Oxalate 20 Mg Tablet) 20 mg PO DAILY [facility] Last Admin: 10/15/22 08:17 Dose: 20 mg Lisinopril (Lisinopril 10 Mg Tablet) 10 mg PO DAILY [facility]; Protocol Last Admin: 10/15/22 08:19 Dose: Not Given Magnesium Hydroxide (Milk Of Magnesia 30 Ml Oral.Susp) 30 ml PO DAILY PRN PRN Reason: Constipation Omeprazole (Omeprazole 20 Mg Capsule.Dr) 20 mg PO BID@0630,1630 [facility] Last Admin: 10/15/22 06:23 Dose: 20 mg Risperidone (Risperidone 0.5 Mg Tablet) 0.5 mg PO BEDTIME [facility] Last Admin: 10/14/22 20:36 Dose: 0.5 mg Rivaroxaban (Rivaroxaban 20 Mg Tablet) 20 mg PO DAILY [facility] Last Admin: 10/15/22 08:17 Dose: 20 mg Tamsulosin HCl (Tamsulosin Hcl 0.4 Mg Capsule) 0.4 mg PO DAILY [facility] Last Admin: 10/15/22 08:18 Dose: 0.4 mg Tramadol HCl (Tramadol Hcl 50 Mg Tablet) 50 mg PO Q6H PRN PRN Reason: Pain, Moderate(Pain Scale 4-6) Trazodone HCl (Trazodone Hcl 50 Mg Tablet) 50 mg PO BEDTIME MRX1 PRN PRN Reason: Insomnia Last Admin: 10/14/22 20:47 Dose: 50 mg Trazodone HCl (Trazodone Hcl 25 Mg Halftab) 25 mg PO TID PRN PRN Reason: Anxiety Allergies Allergies Allergy/AdvReac Type Severity Reaction Status Date / Time No Known Allergies Allergy Verified 10/12/22 09:57 Assessment & Plan Assessment & Plan (1) Routine history and physical examination of adult: Status: Acute Code(s): Z00.00 - Encounter for general adult medical examination without abnormal findings Plan Pt is a 76-year-old male with a PMH significant for?HTN, HLD, BPH, GERD, recurrent episodes of aphasia/TIAs, factor V Leiden on Xarelto, hx of DVT, and alcohol use disorder who is admitted to [facility] for increasing confusion and tox screen positive for methadone. Son states his father has been experiencing increased depression and anxiety lately and has noticed missing medications at home. Medical consult for admission H&P. Mood disorder Plan as per Psychiatry CKD stage 3 Patient's BUN 31 and creatinine 1.81, elevated over levels 1 year ago Unclear what patient's current baseline is Encourage p.o. fluid intake Factor v Leiden Continue Xarelto HTN Continue amlodipine, lisinopril BPH Continue tamsulosin Occurred Continue omeprazole HLD Continue atorvastatin Unsteadiness on feet Pt high fall risk Pt should always use walker for ambulation on the unit Plan 1. Gather collateral information. 2. Continue with current medications. 3. Start dose of Risperdal 0.5 p.o. q.h.s. to target on October 12. 4. We will discontinue Vistaril and we try trazodone as a p.r.n. for anxiety on October 12. 5. Increased Aricept up to 10 mg p.o. q.h.s. in October 12. 6. Family meeting on October 15 with his son. Reason for continued inpatient stay Substantial Risk for: inability to function, rapid decompensation and med/psych decompensation Time Spent With Patient Time: Total time managing care of this patient today _20___ minutes.
[2022-10-15 19:40] VITALS: BP 130/65; PULSE 66; RESP 16; TEMP 36.5; O2SAT 95
[2022-10-15] MEDS: risperiDONE 0.5 MG TABLET PO (20:05)
[2022-10-15] MEDS: traZODone HCL 50 MG TABLET PO (20:48)
[2022-10-16] MEDS: Omeprazole 20 MG CAPSULE.DR PO ×2 (06:14→17:29)
[2022-10-16 08:00] VITALS: BP 125/72; PULSE 80; RESP 18; TEMP 36.6; O2SAT 98
[2022-10-16] MEDS: lisinopriL 10 MG TABLET PO (08:18)
[2022-10-16] MEDS: Atorvastatin Calcium 80 MG TABLET PO (08:18)
[2022-10-16] MEDS: Donepezil HCl 10 MG TABLET PO (08:19)
[2022-10-16] MEDS: amLODIPine Besylate 5 MG TABLET PO (08:19)
[2022-10-16] MEDS: Escitalopram Oxalate 20 MG TABLET PO (08:19)
[2022-10-16] MEDS: Tamsulosin HCL 0.4 MG CAPSULE PO (08:19)
[2022-10-16] MEDS: Celecoxib 200 MG CAPSULE PO (08:19)
[2022-10-16] MEDS: Rivaroxaban 20 MG TABLET PO (08:20)
--- NOTE | 2022-10-16 13:15 | P.PNPSI_ITS ---
Subjective Subjective Date of Service: 10/16/22 Reason For Visit: Adjustment disorders with depressed mood Subjective Notes: Conditional Voluntary Interim History: The nursing staff reported the patient slept 8 hours, he was pleasant cooperative fully compliant with treatment and meals. On interview the patient denies new symptoms he adamantly denies suicidal i deation, we discussed discharge planning for tomorrow. Mental Status Exam Mental Status Exam Patient Appearance: Well Grooomed and Appropriate Patient Orientation: Person and Situation Level of Consciousness: Awake and Appropriate Patient Behavior: Guarded and Passive Mood Description: Withdrawn Affect Description: Constricted Patient Cognition Impaired: Yes Ability to Follow Directions: Good Speech Pattern: Clear Hallucinations: None Delusions: Not Present Thought Process: Linear Thought Content: positive for [place] and positive for [place] of Content Judgement: Fair Diagnostics Vital Signs (24Hr): Vital Signs - 24 hr 10/15/22 19:40 10/16/22 08:00 Temperature 97.7 F 97.9 F Pulse Rate 66 80 Respiratory Rate 16 18 Blood Pressure 130/65 125/72 Pulse Oximetry 95 98 Oxygen Delivery Method Room Air Room Air BMI result Body Mass Index 26.2 Labs 10/14/22 11:43 Medications Medications Current Medications Acetaminophen (Acetaminophen 325 Mg Tablet) 650 mg PO Q6H PRN PRN Reason: Headache/Pain Mild Scale (1-3) Last Admin: 10/12/22 12:09 Dose: 650 mg Al Hydroxide/Mg Hydroxide (Magnesium Hydrox/Alum Hydrox 30 Ml Oral.Susp) 30 ml PO Q6H PRN PRN Reason: Heartburn/Nausea Amlodipine Besylate (Amlodipine Besylate 5 Mg Tablet) 5 mg PO DAILY [facility]; Protocol Last Admin: 10/16/22 08:19 Dose: 5 mg Atorvastatin Calcium (Atorvastatin Calcium 80 Mg Tablet) 80 mg PO DAILY [facility] Last Admin: 10/16/22 08:18 Dose: 80 mg Celecoxib (Celecoxib 200 Mg Capsule) 200 mg PO DAILY [facility] Last Admin: 10/16/22 08:19 Dose: 200 mg Donepezil HCl (Donepezil Hcl 10 Mg Tablet) 10 mg PO DAILY [facility] Last Admin: 10/16/22 08:19 Dose: 10 mg Escitalopram Oxalate (Escitalopram Oxalate 20 Mg Tablet) 20 mg PO DAILY [facility] Last Admin: 10/16/22 08:19 Dose: 20 mg Lisinopril (Lisinopril 10 Mg Tablet) 10 mg PO DAILY [facility]; Protocol Last Admin: 10/16/22 08:18 Dose: 10 mg Magnesium Hydroxide (Milk Of Magnesia 30 Ml Oral.Susp) 30 ml PO DAILY PRN PRN Reason: Constipation Omeprazole (Omeprazole 20 Mg Capsule.Dr) 20 mg PO BID@0630,1630 [facility] Last Admin: 10/16/22 06:14 Dose: 20 mg Risperidone (Risperidone 0.5 Mg Tablet) 0.5 mg PO BEDTIME [facility] Last Admin: 10/15/22 20:05 Dose: 0.5 mg Rivaroxaban (Rivaroxaban 20 Mg Tablet) 20 mg PO DAILY [facility] Last Admin: 10/16/22 08:20 Dose: 20 mg Tamsulosin HCl (Tamsulosin Hcl 0.4 Mg Capsule) 0.4 mg PO DAILY [facility] Last Admin: 10/16/22 08:19 Dose: 0.4 mg Tramadol HCl (Tramadol Hcl 50 Mg Tablet) 50 mg PO Q6H PRN PRN Reason: Pain, Moderate(Pain Scale 4-6) Trazodone HCl (Trazodone Hcl 50 Mg Tablet) 50 mg PO BEDTIME MRX1 PRN PRN Reason: Insomnia Last Admin: 10/15/22 20:48 Dose: 50 mg Trazodone HCl (Trazodone Hcl 25 Mg Halftab) 25 mg PO TID PRN PRN Reason: Anxiety Allergies Allergies Allergy/AdvReac Type Severity Reaction Status Date / Time No Known Allergies Allergy Verified 10/12/22 09:57 Assessment & Plan Assessment & Plan (1) Routine history and physical examination of adult: Status: Acute Code(s): Z00.00 - Encounter for general adult medical examination without abnormal findings Plan Pt is a 76-year-old male with a PMH significant for?HTN, HLD, BPH, GERD, recurrent episodes of aphasia/TIAs, factor V Leiden on Xarelto, hx of DVT, and alcohol use disorder who is admitted to [facility] for increasing confusion and tox screen positive for methadone. Son states his father has been experiencing increased depression and anxiety lately and has noticed missing medications at home. Medical consult for admission H&P. Mood disorder Plan as per Psychiatry CKD stage 3 Patient's BUN 31 and creatinine 1.81, elevated over levels 1 year ago Unclear what patient's current baseline is Encourage p.o. fluid intake Factor v Leiden Continue Xarelto HTN Continue amlodipine, lisinopril BPH Continue tamsulosin Occurred Continue omeprazole HLD Continue atorvastatin Unsteadiness on feet Pt high fall risk Pt should always use walker for ambulation on the unit Plan 1. Gather collateral information. 2. Continue with current medications. 3. Start dose of Risperdal 0.5 p.o. q.h.s. to target on October 12. 4. We will discontinue Vistaril and we try trazodone as a p.r.n. for anxiety on October 12. 5. Increased Aricept up to 10 mg p.o. q.h.s. in October 12. 6. Family meeting on October 15 with his son. Reason for continued inpatient stay Substantial Risk for: inability to function, rapid decompensation and med/psych decompensation Time Spent With Patient Time: Total time managing care of this patient today _20___ minutes.
[2022-10-16 19:35] VITALS: BP 142/67; PULSE 69; RESP 18; TEMP 36.6; O2SAT 97
[2022-10-16] MEDS: traZODone HCL 50 MG TABLET PO ×2 (20:03→21:03)
[2022-10-16] MEDS: risperiDONE 0.5 MG TABLET PO (20:03)
[2022-10-17] MEDS: traZODone HCL 25 MG HALFTAB PO (02:13)
[2022-10-17] MEDS: Omeprazole 20 MG CAPSULE.DR PO (05:56)
[2022-10-17 07:00] VITALS: BMI 27.0
[2022-10-17 08:00] VITALS: BP 108/57; PULSE 77; RESP 18; TEMP 36.5
--- NOTE | 2022-10-17 08:10 | P.DS_ITS ---
DS: Providers Provider Date of Service: 10/17/22 Date of admission: 10/10/22 15:44 Date of discharge: 10/17/22 Primary care physician: Gibson Wheeler DO Consults: 10/10/22 16:16 Consult to Hospitalist Routine Comment: Consulting Provider: Hospitalist Reason For Exam: Direct admission Attending physician on discharge: Musa Grey DS: Diagnosis Discharge Diagnosis (1) Routine history and physical examination of adult: Status: Acute DS: Medications Discharge Medications Home Medications: Home Medications Medication Instructions Recorded Confirmed amlodipine 5 mg tablet 5 mg PO DAILY 10/11/22 10/11/22 atorvastatin 80 mg tablet 80 mg PO DAILY 10/11/22 10/11/22 celecoxib 200 mg capsule 200 mg PO DAILY 10/11/22 10/11/22 escitalopram oxalate 20 mg tablet 20 mg PO DAILY 10/11/22 10/11/22 gabapentin 800 mg tablet 800 mg PO QID 10/11/22 10/11/22 iron 150 mg-C 60 mg-B12 25 1 cap PO DAILY 10/11/22 10/11/22 mcg-folic acid 1 gn-evrwldc-zw.acid capsule (Ferrex) lisinopril 10 mg tablet 10 mg PO DAILY 10/11/22 10/11/22 lorazepam 1 mg tablet 1 mg PO Q6H PRN anxiety 10/11/22 10/11/22 omeprazole 20 mg capsule,delayed 20 mg PO BID 10/11/22 10/11/22 release rivaroxaban 20 mg tablet (Xarelto) 20 mg PO DAILY 10/11/22 10/11/22 tamsulosin 0.4 mg capsule 0.4 mg PO DAILY 10/11/22 10/11/22 tramadol 50 mg tablet 50 mg PO Q6H PRN Pain 10/11/22 10/11/22 Mental Status Exam Mental Status Exam Patient Appearance: Well Grooomed and Appropriate Patient Orientation: Person, Place and Situation Level of Consciousness: Awake and Appropriate Patient Behavior: Cooperative Mood Description: Calm and Depressed Affect Description: Constricted Patient Cognition Impaired: Yes Ability to Follow Directions: Good Speech Pattern: Clear Hallucinations: None Delusions: Not Present Thought Process: Distracted and Slowed Thinking Thought Content: positive for Circumstantial Judgement: Fair Data Data Completed and Pending Completed studies during hospitalization [Text1]: 10/11/22 10/14/22 08:07 11:43 Sodium 142 139 Potassium 4.2 4.5 Chloride 106 107 Carbon Dioxide 20 L 18 L Anion Gap 20 19 BUN 31 H 48 H Creatinine 1.81 H 1.72 H Estim Creat Clear Calc 34.6 36.4 Estimated GFR 37 39 Random Glucose 114 Fasting Glucose 100 H Calcium 9.7 10.0 Total Bilirubin 0.7 0.8 AST 19 17 ALT 11 11 Alkaline Phosphatase 105 107 Total Protein 6.5 7.2 Albumin 3.8 4.3 Triglycerides 87 Cholesterol 146 LDL Cholesterol, Calc 86 HDL Cholesterol 43 DS: Summary Hospital Course Hospital Course: The patient is a 76-year-old male referred from the emergency room since he reported suicidal ideation. The patient had been having marital conflicts and his depressive symptoms worsened with daily of killing himself. His son call 911, he was assessed by the crisis team, medically cleared and transferring to this facility for continuation of care. Please see the HPI of the admission note for further details. On admission, he was placed initially on 5 minutes check to ensure safety. He was restarted on antidepressants, we titrated up Lexapro to 20 mg p.o. q.a.m.. Also on admission, we noticed that the patient had periods of confusion and psychosis and was started with a low dose of Risperdal 0.5 p.o. q.h.s. with for improvement and no evidence of side effects. He While he was in the unit, he was cooperative, pleasant and participating in group activities. He was future oriented. Also, we did cognitive testing and he was scored low. The diagnosis of dementia was done. We decided to start him on Aricept titrated up to 10 mg p.o. q.h.s. with good tolerability. We had several family meetings with her son Ward. The patient's mood improved, he was future oriented and since there were no safety concerns discharge planning was discussed. Time spent discussing smoking cessation with patient: 3 to 10 minutes Status at Discharge Cognitive/behavioral status at discharge: Impaired at baseline Functional status at discharge: independent ambulation Overall status at discharge: patient is back to baseline Time Spent with Patient Time attestation: Total time managing care of this patient today __30__ minutes. Discharge Plan Discharge Anticipated Discharge Date/Time: 10/17/22 11:00 Patient Disposition: Home, Self-Care Discharge Diagnosis: Major depressive disorder Dementia Referrals: Scotty Eckert MD - Psychiatrist [Other] - [id number] [Other] - 10/17/22 2:00 pm (Meal will be delivered. ) Gibson Wheeler DO [Primary Care Provider] - 10/30/22 11:15 am (Appointment is In- Person ) Discharge Medications: New donepezil 10 mg Tablet 10 mg PO DAILY 30 Days Qty: 30 0RF trazodone 50 mg Tablet 50 mg PO BEDTIME MRX1 PRN (Reason: Insomnia) 30 Days Qty: 60 0RF risperidone 0.5 mg Tablet 0.5 mg PO BEDTIME 30 Days Qty: 30 0RF Continued celecoxib 200 mg capsule 200 mg PO DAILY 30 Days Qty: 30 0RF atorvastatin 80 mg tablet 80 mg PO DAILY 30 Days Qty: 30 0RF amlodipine 5 mg tablet 5 mg PO DAILY 30 Days Qty: 30 0RF tramadol 50 mg tablet 50 mg PO Q6H PRN (Reason: Pain) 30 Days Qty: 30 0RF tamsulosin 0.4 mg capsule 0.4 mg PO DAILY 30 Days Qty: 30 0RF lisinopril 10 mg tablet 10 mg PO DAILY 30 Days Qty: 30 0RF omeprazole 20 mg capsule,delayed release(DR/EC) 20 mg PO BID 30 Days Qty: 60 0RF escitalopram oxalate 20 mg tablet 20 mg PO DAILY 30 Days Qty: 30 0RF Ferrex 150 Forte Plus 150-60-25-1 kl-jr-lok-mg capsule 1 cap PO DAILY Qty: 30 0RF Xarelto 20 mg tablet 20 mg PO DAILY Qty: 30 0RF Discontinued gabapentin 800 mg tablet 800 mg PO QID lorazepam 1 mg tablet 1 mg PO Q6H PRN (Reason: anxiety) Discharge Orders: Discharge Order (Routine); Ordered 10/17/22 Ordered By: Musa Grey Diet: Advance to usual diet Activity on Discharge: As tolerated Stand Alone Forms: Patient Portal Discharge page Care Plan Goals: Care plan goals achieved in this admission Health Concerns: Continue treatment with outpatient providers Plan of Treatment: Continue psychiatric treatment by outpatient providers Assessment: Elderly male with a past history of depression now with dementia admitted for suicidality in the context of marital conflict. At this moment safe to be discharged to the community with ancillary services. Future oriented and improvement in his depression.
[2022-10-17] MEDS: Tamsulosin HCL 0.4 MG CAPSULE PO (08:22)
[2022-10-17] MEDS: Celecoxib 200 MG CAPSULE PO (08:22)
[2022-10-17] MEDS: Rivaroxaban 20 MG TABLET PO (08:22)
[2022-10-17] MEDS: Escitalopram Oxalate 20 MG TABLET PO (08:22)
[2022-10-17] MEDS: Atorvastatin Calcium 80 MG TABLET PO (08:22)
[2022-10-17] MEDS: Donepezil HCl 10 MG TABLET PO (08:22)
[2022-10-17] MEDS: amLODIPine Besylate 5 MG TABLET PO (09:04)
--- NOTE | 2022-10-17 12:43 | PC.NURSE ---
Patient alert and oriented. Pleasant and cooperative with staff. Reports readiness for discharge. Educated on meds. Discharged with belongings and appointments. Denies SI/HI. Ambulates with steady gait. Denies pain. Pt left the unit at 12:10PM.
== END 2022-10-17 12:10 | disposition home or self-care (01) | DRG 881 ==
PROVIDERS: Social Worker; Admitting Provider Psychiatry & Neurology Psychiatry; PCP Family Medicine; Visit Provider Psychiatry & Neurology Psychiatry
DX: F32.9 Major depressive disorder, single episode, unspecified (principal); D68.51 Activated protein C resistance; E78.5 Hyperlipidemia, unspecified; F10.21 Alcohol dependence, in remission; K21.9 Gastro-esophageal reflux disease without esophagitis; N40.0 Benign prostatic hyperplasia without lower urinary tract symptoms; I12.9 Hypertensive chronic kidney disease with stage 1 through stage 4 chronic kidney disease, or unspecified chronic kidney disease; N18.30 Chronic kidney disease, stage 3 unspecified; Z86.718 Personal history of other venous thrombosis and embolism; Z79.01 Long term (current) use of anticoagulants; Z79.899 Other long term (current) drug therapy
CPT/HCPCS: 36415; 80053; 80061

== ENCOUNTER → 2022-10-10 15:44 | Outpatient (BNV) | payer MEDICARE, SELFPAY | PROVIDERS: Admitting Provider Psychiatry & Neurology Psychiatry; PCP Family Medicine; Visit Provider Student in an Organized Health Care Education/Training Program | DX: N18.30 Chronic kidney disease, stage 3 unspecified (principal); D68.51 Activated protein C resistance | CPT/HCPCS: 99221 ==

== ENCOUNTER → 2022-10-10 15:44 | Outpatient (BNV) | payer MEDICARE, SELFPAY | PROVIDERS: Admitting Provider Psychiatry & Neurology Psychiatry; PCP Family Medicine; Visit Provider Psychiatry & Neurology Psychiatry | DX: F43.21 Adjustment disorder with depressed mood (principal); F33.2 Major depressive disorder, recurrent severe without psychotic features | CPT/HCPCS: 90792; 99231; 99232; 99238 ==